=== PATIENT | female | born 1960 | race Hispanic/Latino ===

== ENCOUNTER 2022-11-14 14:26 | Emergency (ER) | payer BC ==
--- OUTSIDE RECORDS SUMMARY | 2022-11-14 14:30 | XMS REPORT | Continuity of Care Document ---
:[address] [facility] t Address [address] [facility] [address] [place] [address] Care Team Providers Name Role Phone White_M Attending Clinician Unavailable Zuniga_S Attending Clinician Unavailable IHDE_G Attending Clinician Unavailable V_Landis Attending Clinician Unavailable Zuniga_F Attending Clinician Unavailable White_M Admitting Clinician Unavailable Zuniga_S Admitting Clinician Unavailable IHDE_G Admitting Clinician Unavailable V_Landis Admitting Clinician Unavailable Zuniga_F Admitting Clinician Unavailable Payers Payer Name Policy Type Policy Number Effective Date Expiration Date S karyn [facility]: ANTHONY [id number] 2016 ADVANTAGE ([facility]) 00:00:00 Problems Condition Condition Condition Status Onset Resolution Last Treating Co mments Source Name Details Category Date Date Treatment Clinician Date Acute Acute Problem Active [facility] upper Upper 9-06 da respirator Respirator 00:00: Me dical y y 00 Group infection Infection Cough Cough Problem Active [facility] 9-06 da 00:00: Medical 00 Group Bacterial Bacterial Problem Active 2019- [facility] vaginosis Vaginosis 2-06 da 00:00: Medical 00 Group Candidiasi Candidiasi Problem Active 2019-0 M [facility] s of s of 2-06 da vagina Vagina 00:00: Medical 00 Group Female Female Problem Active 2019-0 [facility] stress Stress 2-06 da incontinen Incontinen 00:00: Me dical ce ce 00 Group History of History of Problem Active 2020-0 M [facility] polyp of Polyp of 2-06 da colon Colon 00:00: Medical 00 Group Gynecologi Gynecologi Problem Active 2020-0 M [facility] c c 2-06 da examinatio Examinatio 00:00: Me dical n n 00 Group Screening Screening Problem Active 2020-0 [facility] for for 05-02 da malignant Malignant 00:00: Medi caroline neoplasm Neoplasm 00 Group of breast of Breast Hyperlipid Hyperlipid Problem Active M allan emia emia [facility] Essential Essential Problem Active Trent resendizr hypertensi Hypertensi da on on Medical Group Gastroesop Gastroesop Problem Active M allan hageal hageal da reflux Reflux Medical disease Disease Group Eruption Eruption Problem Active [facility] Allergies, Adverse Reactions, Alerts This patient has no known allergies or adverse reactions. Social History Smoking Status Start Date Stop Date Source Former Smoker [facility] Medications Ordered Filled Start Stop Current Ordering Indication Dosage Frequency Signature Comments Components Source Medication Medication Date Date Medication? Clinician (SIG) Name Name famotidine famotidine No famotidine [facility] 20 mg 20 mg 20 mg da tablet TAKE tablet TAKE tablet Medical ONE (1) ONE (1) TAKE ONE Group TABLET(S) TABLET(S) (1) BY MOUTH BY MOUTH TABLET(S) TWICE A TWICE A BY MOUTH DAY. DAY. TWICE A DAY. metronidazo metronidazo No 1 BID metronidaz [place] le 500 mg le 500 mg ole 500 mg da tablet Take tablet Take tablet Medical 1 tablet 1 tablet Take 1 Group twice a day twice a day tablet by oral by oral twice a route for 7 route for 7 day by days. days. oral route for 7 days. famotidine famotidine No famotidine [facility] 20 mg 20 mg 20 mg da tablet TAKE tablet TAKE tablet Medical ONE (1) ONE (1) TAKE ONE Group TABLET(S) TABLET(S) (1) BY MOUTH BY MOUTH TABLET(S) TWICE A TWICE A BY MOUTH DAY. DAY. TWICE A DAY. metronidazo metronidazo No metronidaz [place] le 500 mg le 500 mg ole 500 mg da tablet TAKE tablet TAKE tablet Medical 1 TABLET 1 TABLET TAKE 1 Group TWICE A DAY TWICE A DAY TABLET BY ORAL BY ORAL TWICE A ROUTE FOR 7 ROUTE FOR 7 DAY BY DAYS. DAYS. ORAL ROUTE FOR 7 DAYS. albuterol albuterol No 2puff(s Q4H albuterol [facility] sulfate HFA sulfate HFA ) sulfate da 90 90 HFA 90 Medical mcg/actuati mcg/actuati mcg/actuat Group on aerosol on aerosol ion inhaler inhaler aerosol Inhale 2 Inhale 2 inhaler puffs every puffs every Inhale 2 4 hours by 4 hours by puffs inhalation inhalation every 4 route as route as hours by needed. needed. inhalation route as needed. benzonatate benzonatate No 1capsul TID benzonatat [facility] 200 mg 200 mg e(s) e 200 mg da capsule capsule capsule Medica l Take 1 Take 1 Take 1 Group capsule 3 capsule 3 capsule 3 times a day times a day times a by oral by oral day by route as route as oral route needed. needed. as needed. famotidine famotidine No famotidine [facility] 20 mg 20 mg 20 mg da tablet TAKE tablet TAKE tablet Medical ONE (1) ONE (1) TAKE ONE Group TABLET(S) TABLET(S) (1) BY MOUTH BY MOUTH TABLET(S) TWICE A TWICE A BY MOUTH DAY. DAY. TWICE A DAY. fluticasone fluticasone No 1spray( Q1D fluticason [facility] propionate propionate s) e da 50 50 propionate Medical mcg/actuati mcg/actuati 50 G roup on nasal on nasal mcg/actuat spray,suspe spray,suspe ion nasal nsion [place] nsion [place] spray,susp 1 spray 1 spray ension every day every day [place] 1 by by spray intranasal intranasal every day route. route. by intranasal route. Medrol Medrol No Medrol [place] (Reese) 4 mg (Reese) 4 mg (Reese) 4 mg da tablets in tablets in tablets in Medical a dose pack a dose pack a dose Group take as take as pack take directed. directed. as directed. Vital Signs Vital Name Observation Time Observation Value Comments Source BP Diastolic 2022-05-04 00:00:00 75 [facility]Hg[facility] Height 2022-05-04 00:00:00 60 [facility] BMI (Body Mass 2022-05-04 00:00:00 33.9 kg/m2 [facility] yardage caller Medical Index) Group BP Systolic 2022-05-04 00:00:00 149 mm[Hg] [facility] Body Weight 2022-05-04 00:00:00 173.7 [lb_av] [facility] BP Diastolic 2022-04-14 00:00:00 82 mm[Hg] [facility] Height 2022-04-14 00:00:00 60 [in_i] [facility] BMI (Body Mass 2022-04-14 00:00:00 34.8 kg/m2 [facility] Medical Index) Group BP Systolic 2022-04-14 00:00:00 134 mm[Hg] [facility] Body Weight 2022-04-14 00:00:00 178 [lb_av] [facility] BP Diastolic 2021-11-30 00:00:00 84 mm[Hg] [facility] Height 2021-11-30 00:00:00 60 [in_i] [facility] BMI (Body Mass 2021-11-30 00:00:00 34.4 kg/m2 [facility] Medical Index) Group BP Systolic 2021-11-30 00:00:00 154 mm[Hg] [facility] Body Weight 2021-11-30 00:00:00 2816 [oz_av] [facility] Height 2019-12-31 00:00:00 60 [in_i] [facility] BMI (Body Mass 2019-12-31 00:00:00 33.8 kg/m2 [facility] Medical Index) Group Body Weight 2019-12-31 00:00:00 2768 [oz_av] [facility] BP Diastolic 2019-12-12 00:00:00 68 mm[Hg] [facility] Height 2019-12-12 00:00:00 60 [in_i] [facility] BMI (Body Mass 2019-12-12 00:00:00 33.9 kg/m2 [facility] Medical Index) Group BP Systolic 2019-12-12 00:00:00 132 mm[Hg] [facility] Body Weight 2019-12-12 00:00:00 173.5 [lb_av] [facility] Height 2019-09-30 00:00:00 60 [in_i] [facility] BP Diastolic 2019-06-11 00:00:00 74 mm[Hg] [facility] Height 2019-06-11 00:00:00 60 [in_i] [facility] BMI (Body Mass 2019-06-11 00:00:00 33.2 kg/m2 [facility] yardage caller Medical Index) Group BP Systolic 2019-06-11 00:00:00 144 mm[Hg] [facility] Body Weight 2019-06-11 00:00:00 2721 [oz_av] [facility] BP Diastolic 2019-05-14 00:00:00 82 mm[Hg] [facility] Height 2019-05-14 00:00:00 60 [in_i] [facility] BMI (Body Mass 2019-05-14 00:00:00 33.4 kg/m2 [facility] yardage caller Medical Index) Group BP Systolic 2019-05-14 00:00:00 134 mm[Hg] [facility] Body Weight 2019-05-14 00:00:00 171 [lb_av] [facility] BP Diastolic 2019-05-02 00:00:00 84 mm[Hg] [facility] Height 2019-05-02 00:00:00 60 [in_i] [facility] BMI (Body Mass 2019-05-02 00:00:00 33.5 kg/m2 [facility] yardage caller Medical Index) Group BP Systolic 2019-05-02 00:00:00 132 mm[Hg] [facility] Body Weight 2019-05-02 00:00:00 171.4 [lb_av] [facility] BP Diastolic 2018-12-06 00:00:00 86 mm[Hg] [facility] Height 2018-12-06 00:00:00 60 [in_i] [facility] BMI (Body Mass 2018-12-06 00:00:00 34.2 kg/m2 [facility] yardage caller Medical Index) Group BP Systolic 2018-12-06 00:00:00 140 mm[Hg] [facility] Body Weight 2018-12-06 00:00:00 2800 [oz_av] [facility] BP Diastolic 2018-11-19 00:00:00 72 mm[Hg] [facility] Height 2018-11-19 00:00:00 60 [in_i] [facility] BMI (Body Mass 2018-11-19 00:00:00 34.2 kg/m2 [facility] yardage caller Medical Index) Group BP Systolic 2018-11-19 00:00:00 125 mm[Hg] [facility] Body Weight 2018-11-19 00:00:00 2800 [oz_av] [facility] Procedures Procedure Date / Time Performing Clinician Source Performed MAMMO, screening, digital, 2022-04-14 00:00:00 [facility] Upper GI Endoscopy 2019-06-05 00:00:00 [facility] Colonoscopy 2019-06-05 00:00:00 [facility] unlisted imaging order 2019-05-02 00:00:00 [facility] MAMMO, screening, 2018-11-19 00:00:00 [facility] Bladder Suspension 2013-03-27 00:00:00 [facility] Cholecystectomy 2011-03-27 00:00:00 [facility] Hy[facility] Plan of Care Planned Activity Planned Date Details Comments Source Diagnostic Test 2022-04-14 urinalysis, [facility] 00:00:00 dipstick [code = Group urinalysis, dipstick] Diagnostic Test 2022-04-14 genetic disease [facility] Pending 00:00:00 analysis, blood or Group tissue [code = genetic disease analysis, blood or tissue] Diagnostic Test 2022-04-14 STI panel [code = [facility] 00:00:00 STI panel] Group Instructions [facility] Encounters Start End Encounter Admission Attending Care Care Encounter Source Date/Time Date/Time Type Type Clinicians Facility Department ID 2022-08-29 2022-08-29 Outpatient White_M MMG MMG [id number] [facility] 00:00:00 00:00:00 605 [facility] 2022-08-29 2022-08-29 Outpatient White_M MMG MMG [id number] [facility] 00:00:00 00:00:00 821 [facility] 2022-05-04 2022-05-04 Outpatient White_M MMG MMG [id number] 230 [facility] 00:00:00 00:00:00 208 [facility] 2022-05-04 2022-05-04 Hellen G [place] - [id number] M [facility] 00:00:00 00:00:00 Discovery Denis BlankP-: [address] [address] , Ph. [phone] 2022-04-15 2022-04-15 Outpatient White_M MMG MMG [id number] [facility] 00:00:00 00:00:00 120 [facility] 2022-04-14 2022-04-14 Outpatient White_M MMG MMG [id number] 230 [facility] 00:00:00 00:00:00 119 [facility] 2022-04-14 2022-04-14 Hlelen PALAFOXG [place] - [id number] M [facility] 00:00:00 00:00:00 Discovery Denis BlankP-: [address] [address] , Ph. [phone] 2022-04-08 2022-04-08 Outpatient Zuniga_S MMG MMG [id number] [facility] 00:00:00 00:00:00 118 [facility] 2022-04-08 2022-04-08 Outpatient Zuniga_S MMG MMG [id number] [facility] 00:00:00 00:00:00 113 [facility] 2021-11-30 2021-11-30 Outpatient Zuniga_S MMG MMG [id number] [facility] 00:00:00 00:00:00 906 Medical [facility] 2021-11-30 2021-11-30 Karol G [place] - [id number] [facility] 00:00:00 00:00:00 Discovery Denis RicoP-: [address] [place] [phone] , Ph. 2021-05-25 2021-05-25 Outpatient IHDE_G MMG MMG [id number] [facility] 03:47:00 03:47:00 301 [facility] 2020-02-12 2020-02-12 Outpatient IHDE_G MMG MMG [id number] [place] 02:35:00 02:35:00 118 [facility] 2019-12-31 2019-12-31 Bobby IHDE_G MMG [id number] 1 [facility] 00:00:00 00:00:00 Orville Pitts 006 Skyler Gaytan Medical MD: 600 [facility] [address], [place] [address] , Ph. 2019-12-12 2019-12-12 Hector IHDE_G MMG 0 [facility] 00:00:00 00:00:00 Fermín Pitts 91Cristi Agrawal MD: Medical Medica teresa [address] [place] [address] [address], [place] [address] , Ph. [phone] 2019-12-11 2019-12-11 Outpatient IHDE_G MMG MMG [id number] [facility] 09:41:00 09:41:00 916 [facility] 2019-12-06 2019-12-06 Outpatient IHDE_G MMG MMG [id number] 200 [place] 11:36:00 11:36:00 911 [facility] 2019-11-28 2019-11-28 Outpatient IHDE_G MMG MMG [id number] 200 [place] 06:10:00 06:10:00 903 [facility] 2019-11-21 2019-11-21 Outpatient IHDE_G MMG MMG [id number] 200 [place] 10:16:00 10:16:00 827 [facility] 2019-10-15 2019-10-15 Bobby IHDE_G MMG [place] - [id number] 0 [facility] 00:00:00 00:00:00 Orville Pitts 721 Skyler Gaytan Medical MD: [address] [place] [address] [address], [place] [address] , Ph. 2019-09-30 2019-09-30 Bobby IHDE_G MMG [place] [id number] 0 [facility] 00:00:00 00:00:00 Orville Pitts 706 da [facility] Medical MD: [address] [address] , Ph. 2019-09-20 2019-09-20 Outpatient IHDE_G MMG MMG [id number] 200 [place] 11:27:00 11:27:00 626 [facility] 2019-09-13 2019-09-13 Outpatient IHDE_G MMG MMG [id number] 200 [place] 12:44:00 12:44:00 619 [facility] 2019-08-09 2019-08-09 Outpatient IHDE_G MMG MMG [id number] 200 [place] 01:02:00 01:02:00 515 [facility] 2019-07-30 2019-07-30 Anne Marie IHDE_G MMG [place] - 9062- [facility] 00:00:00 00:00:00 Discovery Penny 505 da SNOW RANGER: [address] [address] , Ph. 2019-07-05 2019-07-05 Outpatient IHDE_G MMG MMG [id number] 200 [place] 01:25:00 01:25:00 410 [facility] 2019-06-11 2019-06-11 Juana IHDE_G MMG [place] - [id number]- [facility] 00:00:00 00:00:00 Stormy Pitts 317 tyrell Zaidi Medical Medical SNOW RANGER: [address] [address], [place] [address] , Ph. 2019-06-05 2019-06-05 Outpatient IHDE_G MMG MMG [id number] 200 [place] 03:28:00 03:28:00 311 [facility] 2019 2019 Outpatient IHDE_G MMG MMG [id number] 200 [place] 12:02:00 12:02:00 304 [facility] 2019-05-28 2019-05-28 Outpatient IHDE_G MMG MMG [id number] 200 [place] 12:07:00 12:07:00 303 [facility] 2019-05-15 2019-05-15 Outpatient IHDE_G MMG MMG [id number] 200 [place] 08:17:00 08:17:00 219 [facility] 2019-05-14 2019-05-14 Hector IHDE_G MMG [place] - [id number] [facility] 00:00:00 00:00:00 Fermín Pitts 218 tyerll Dominguez MD: Skyler moore [address] [place] [address] [address], [place] [address] , Ph. [phone] 2019-05-03 2019-05-03 Outpatient V_Landis MMG MMG [id number] [facility] 09:17:00 09:17:00 207 [facility] 2019-05-02 2019-05-02 Samara King V_Landis MMG [place] - [id number] [facility] 00:00:00 00:00:00 Discovery Bertram 206 da WHNP: [address] [place] [address] [address], [place] [address] , Ph. [phone] 2019-05-01 2019-05-01 Outpatient Zuniga_F MMG MMG [id number] [facility] 11:16:00 11:16:00 205 [facility] 2019-04-26 2019-04-26 Outpatient Zuniga_F MMG MMG [id number] [facility] 10:48:00 10:48:00 131 [facility] 2019-04-23 2019-04-23 Outpatient Zuniga_F MMG MMG [id number] [facility] 12:50:00 12:50:00 128 [facility] 2018-12-06 2018-12-06 Bobby MMG [place] - [id number] 0 [facility] 00:00:00 00:00:00 Orville Pitts 912 da Skyler Rico MD: [address] [place] [address] [address], [place] [address] , Ph. 2018-11-19 2018-11-19 Bobby [facility] [place] - [id number] 0 [facility] 00:00:00 00:00:00 Orville Gaytan, Medical Medical MD: [facility] [address], [place] [address] , Ph. Results Test Description Test Time Test Comments Results Result Comments Source STI panel 2022-04-15 00:00:00 Test Item Value Reference Range Interpretation Comme nts nel - swab (test code = nel - swab) normal gardnerella (test code = gardnerella) normal CT/NG (test code = CT/NG) normal trichomonas vaginalis addon - swab (test code = trichomonas vaginal is normal addon - swab) [facility] - cancer history assessment [id number] 07:32:00 Test Item Value Reference Range Interpretation Comments [facility] meets criteria A assessment result (test code = [facility] [place] result) [facility] Ag [Presence] in Respiratory specimen by Rapid [id number] 10:01:30 Test Item Value Reference Range Interpretation Comments SARS-CoV - 2 (test code = SARS-CoV - negative 2) [facility] [id number] 05:59:00 Test Item Value Reference Range Interpretation Comments Surgical pathology see separate pathology study (test code = report. 09558-6) [facility] - [id number] 09:20:38 Test Item Value Reference Range Interpretation Comments Leukocytes (test code = Negative Leukocytes) Nitrite (test code = negative Nitrite) Urobilinogen (test code = .2 Urobilinogen) Protein (test code = Negative Protein) pH (test code = pH) 6.5 Blood (test code = Blood) Hemolyzed: Trace Specific Rutherford (test code 1.030 = Specific Rutherford) Ketone (test code = Ketone) Negative Bilirubin (test code = Negative Bilirubin) Glucose (test code = Negative Glucose) Appearance (test code = Clear Appearance) Color (test code = Color) Yellow [facility] (dipstick) panel - [id number] 09:20:38 Test Item Value Reference Range Interpretation Comments Leukocytes (test code = Negative Leukocytes) Nitrite (test code = negative Nitrite) Urobilinogen (test code = .2 Urobilinogen) Protein (test code = Negative Protein) pH (test code = pH) 6.5 Blood (test code = Blood) Hemolyzed: Trace Specific [place]uther[place] (test code 1.030 = Specific [place]) Ketone (test code = Ketone) Negative Bilirubin (test code = Negative Bilirubin) Glucose (test code = Negative Glucose) Appearance (test code = Clear Appearance) Color (test code = Color) Yellow [facility]em[facility] A[facility] [Mass/volume] in [id number] 06:44:00 Test Item Value Reference Range Interpretation Comments Hemoglobin A1c [Mass/volume] in Blood 5.8 % 4.0-6.0 (test code = 69062-3) [facility] panel - Serum or [id number] 06:44:00 Test Item Value Reference Range Interpretation Comments cholesterol level (test code = 209 mg/dL 150-200 H cholesterol level) triglycerides level (test code = 218 mg/dL <150 H triglycerides level) HDL cholesterol (test code = HDL 50 mg/dL >65 L cholesterol) LDL cholesterol direct (test code = 138 mg/dL <100 H LDL cholesterol direct) cholesterol risk ratio (test code = 4.180 cholesterol risk ratio) [facility] 2000 panel - Serum or Plasma 2018-11-20 06:44:00 Test Item Value Reference Range Interpretation Comments Glucose [Mass/volume] in Serum or 97 mg/dL 74-106 Plasma (test code = 2345-7) Urea nitrogen [Mass/volume] in 12 mg/dL 6-20 Serum or Plasma (test code = 3094-0) osmolality calculated, serum (test 277 280-300 L code = osmolality calculated, serum) creatinine (test code = 0.5 mg/dL 0.50-0.90 creatinine) glomerular filtration rate (test >60.00 code = glomerular filtration rate) Urea nitrogen/Creatinine [Mass 24.0 12-20 H Ratio] in Serum or Plasma (test code = 3097-3) sodium level (test code = sodium 139 mmol/L 135-145 level) potassium level (test code = 4.1 mmol/L 3.5-5.2 potassium level) chloride level (test code = 102 mmol/L 98-108 chloride level) CO2 (test code = CO2) 22 mmol/L 21-32 anion gap (test code = anion gap) 19.1 mEq/L 12-20 calcium level (test code = calcium 9.2 mg/dL 8.6-10.0 level) total protein (test code = total 7.2 g/dL 6.6-8.7 protein) albumin (test code = albumin) 4.1 g/dL 3.5-5.2 globulin (test code = globulin) 3.1 gm/dL A/G ratio (test code = A/G ratio) 1.3 >1.0 bilirubin,total (test code = <0.3 0.0-1.2 bilirubin,total) AST/SGOT (test code = AST/SGOT) 21 U/L 15-32 Alanine aminotransferase 15 U/L 0-33 [Enzymatic activity/volume] in Serum or Plasma (test code = 1742-6) Alkaline phosphatase [Enzymatic 90 U/L 35-105 activity/volume] in Serum or Plasma (test code = 6768-6) [facility] W Auto Differential panel - [id number] 06:44:00 Test Item Value Reference Range Interpretation Comments white blood count (test code = 9.0 K/uL 4.0-11.5 white blood count) red blood count (test code = red 4.51 M/uL 3.80-5.20 blood count) hemoglobin (test code = 12.6 g/dL 10.5-15.7 hemoglobin) hematocrit (test code = 40.5 % 34.0-50.0 hematocrit) Erythrocyte mean corpuscular 89.8 fL 86-100 volume [Entitic volume] (test code = 65107-4) mean corpuscular hemoglobin (test 27.9 pg 26.2-33.4 code = mean corpuscular hemoglobin) mean corpuscular HGB conc (test 31.1 g/dL 30-34 code = mean corpuscular HGB conc) red cell distribution width (test 13.2 % 12.0-15.5 code = red cell distribution width) platelet count (test code = 309 K/uL 165-450 platelet count) mean platelet volume (test code = 11.4 fL 9.4-12.6 mean platelet volume) Neutrophils.segmented/100 68.2 % 44.4-80.1 leukocytes in Blood (test code = 02278-3) Ig% (test code = Ig%) 0.4 % 0.0-0.4 lymphocyte% (test code = 24.8 % 10.0-50.0 lymphocyte%) mono % (test code = mono %) 5.1 % 3.6-12.0 eos % (test code = eos %) 1.3 % 0.0-5.4 Basophils/100 leukocytes in 0.2 % 0.1-1.2 Unspecified specimen (test code = 13454-0) absolute neutrophil count (test 6.09 K/uL 1.56-6.13 code = absolute neutrophil count) Ig# (test code = Ig#) 0.0 K/uL 0.0-0.03 Lymphocytes [#/volume] in 2.2 K/uL 1.18-3.74 Unspecified specimen by Automated count (test code = 15384-9) mono # (test code = mono #) 0.46 K/uL 0.24-0.86 eos # (test code = eos #) 0.12 K/uL 0.04-0.36 basophil # (test code = basophil 0.02 K/uL 0.01-0.08 #) NRBC% (test code = NRBC%) 0 /100 WBC 0-0.2 NRBC# (test code = NRBC#) 0 K/uL [facility], [id number] 06:44:00 NeutrophilsLymphocyteAtypical LymphMonocytePlatelet EstimatePlatelet MorphologyDifferential comment-PMaMerit Health CentralHemoglobin A1c [Mass/volume] in [id number] 06:44:00 Test Item Value Reference Range Interpretation Comments Hemoglobin A1c [Mass/volume] in Blood 5.8 % 4.0-6.0 (test code = 16409-9) [facility] panel - Serum or [id number] 06:44:00 Test Item Value Reference Range Interpretation Comments cholesterol level (test code = 209 mg/dL 150-200 H cholesterol level) triglycerides level (test code = 218 mg/dL <150 H triglycerides level) HDL cholesterol (test code = HDL 50 mg/dL >65 L cholesterol) LDL cholesterol direct (test code = 138 mg/dL <100 H LDL cholesterol direct) cholesterol risk ratio (test code = 4.180 cholesterol risk ratio) [facility] 2000 panel - Serum or Plasma 2018-11-20 06:44:00 Test Item Value Reference Range Interpretation Comments Glucose [Mass/volume] in Serum or 97 mg/dL 74-106 Plasma (test code = 2345-7) Urea nitrogen [Mass/volume] in 12 mg/dL 6-20 Serum or Plasma (test code = 3094-0) osmolality calculated, serum (test 277 280-300 L code = osmolality calculated, serum) creatinine (test code = 0.5 mg/dL 0.50-0.90 creatinine) glomerular filtration rate (test >60.00 code = glomerular filtration rate) Urea nitrogen/Creatinine [Mass 24.0 12-20 H Ratio] in Serum or Plasma (test code = 3097-3) sodium level (test code = sodium 139 mmol/L 135-145 level) potassium level (test code = 4.1 mmol/L 3.5-5.2 potassium level) chloride level (test code = 102 mmol/L 98-108 chloride level) CO2 (test code = CO2) 22 mmol/L 21-32 anion gap (test code = anion gap) 19.1 mEq/L 12-20 calcium level (test code = calcium 9.2 mg/dL 8.6-10.0 level) total protein (test code = total 7.2 g/dL 6.6-8.7 protein) albumin (test code = albumin) 4.1 g/dL 3.5-5.2 globulin (test code = globulin) 3.1 gm/dL A/G ratio (test code = A/G ratio) 1.3 >1.0 bilirubin,total (test code = <0.3 0.0-1.2 bilirubin,total) AST/SGOT (test code = AST/SGOT) 21 U/L 15-32 Alanine aminotransferase 15 U/L 0-33 [Enzymatic activity/volume] in Serum or Plasma (test code = 1742-6) Alkaline phosphatase [Enzymatic 90 U/L 35-105 activity/volume] in Serum or Plasma (test code = 6768-6) [facility] W Auto Differential panel - [id number] 06:44:00 Test Item Value Reference Range Interpretation Comments white blood count (test code = 9.0 K/uL 4.0-11.5 white blood count) red blood count (test code = red 4.51 M/uL 3.80-5.20 blood count) hemoglobin (test code = 12.6 g/dL 10.5-15.7 hemoglobin) hematocrit (test code = 40.5 % 34.0-50.0 hematocrit) Erythrocyte mean corpuscular 89.8 fL 86-100 volume [Entitic volume] (test code = 68197-1) mean corpuscular hemoglobin (test 27.9 pg 26.2-33.4 code = mean corpuscular hemoglobin) mean corpuscular HGB conc (test 31.1 g/dL 30-34 code = mean corpuscular HGB conc) red cell distribution width (test 13.2 % 12.0-15.5 code = red cell distribution width) platelet count (test code = 309 K/uL 165-450 platelet count) mean platelet volume (test code = 11.4 fL 9.4-12.6 mean platelet volume) Neutrophils.segmented/100 68.2 % 44.4-80.1 leukocytes in Blood (test code = 61306-1) Ig% (test code = Ig%) 0.4 % 0.0-0.4 lymphocyte% (test code = 24.8 % 10.0-50.0 lymphocyte%) mono % (test code = mono %) 5.1 % 3.6-12.0 eos % (test code = eos %) 1.3 % 0.0-5.4 Basophils/100 leukocytes in 0.2 % 0.1-1.2 Unspecified specimen (test code = 69467-6) absolute neutrophil count (test 6.09 K/uL 1.56-6.13 code = absolute neutrophil count) Ig# (test code = Ig#) 0.0 K/uL 0.0-0.03 Lymphocytes [#/volume] in 2.2 K/uL 1.18-3.74 Unspecified specimen by Automated count (test code = 99168-7) mono # (test code = mono #) 0.46 K/uL 0.24-0.86 eos # (test code = eos #) 0.12 K/uL 0.04-0.36 basophil # (test code = basophil 0.02 K/uL 0.01-0.08 #) NRBC% (test code = NRBC%) 0 /100 WBC 0-0.2 NRBC# (test code = NRBC#) 0 K[facility]L [facility] [id number] 06:44:00 NeutrophilsLymphocyteAtypical LymphMonocytePlatelet EstimatePlatelet MorphologyDifferential comment-[facility]
--- NOTE | 2022-11-14 15:26 | RAD REPORT ---
EXAM DESCRIPTION: CT - Head Brain Wo Cont - 11/14/2022 3:10 pm CLINICAL HISTORY: Facial droop COMPARISON: none TECHNIQUE: Computed axial tomography of the head was obtained. IV contrast was not requested. All CT scans are performed using dose optimization technique as appropriate and may include automated exposure control or mA/KV adjustment according to patient size. FINDINGS: An intracranial bleed is not seen The ventricles are normal in caliber No significant hypodense areas within the brain visualized No extra-axial fluid collection is noted. Fluid within the sinuses/ mastoids is not seen IMPRESSION: No acute intracranial abnormality is seen If patient's symptoms persist MRI of the brain would be recommended
--- NOTE | 2022-11-14 15:27 | RAD REPORT ---
EXAM DESCRIPTION: [place] Single View11/14/2022 3:16 pm CLINICAL HISTORY: sob COMPARISON: none FINDINGS: The lungs appear clear of acute infiltrate. The heart is normal size IMPRESSION: No acute abnormalities displayed
[2022-11-14 16:19] LABS: Absolute Lymphocytes (CBC) 2.2 K/uL (0.7-4.9); Hematocrit 40.6 % (36.0-45.0); MCV 87.3 fL (80-100); MPV 8.6 fL (7.6-11.3); Platelets 348 thou/uL (152-406); RBC Red Blood Cell Count 4.65 M/uL (3.86-4.86)
[2022-11-14 16:27] LABS: Protime INR 0.98
[2022-11-14 16:38] LABS: Albumin 3.7 g/dL (3.4-5.0); Bilirubin Direct 0.1 mg/dL (0-0.2); Bilirubin Indirect, Calculated 0.3 mg/dL (0.2-0.8); Bilirubin Total 0.4 mg/dL (0.2-1.0); Magnesium 2.1 mg/dL (1.6-2.4); Potassium 3.4 mEq/L (3.5-5.1); Protein, Total 7.7 g/dL (6.4-8.2)
[2022-11-14] MEDS ORDERED: NA CHLORIDE 0.9% 250 ML ONE (17:31)
[2022-11-14] MEDS ORDERED: NA CHLORIDE 0.9% 1,000 ML ONE (17:31)
[2022-11-14] MEDS ORDERED: LABETALOL 20 MG/4ML SYRINGE IV ONE (17:31)
[2022-11-14] MEDS ORDERED: AZITHROMYCIN 500 MG INJ IVPB ONE (17:31)
[2022-11-14] MEDS ORDERED: dexAMETHasone 10 MG/ML VIAL ONE (17:31)
[2022-11-14 18:09] LABS: Barbiturates NEGATIVE (NEGATIVE); Benzodiazepines NEGATIVE (NEGATIVE); Cocaine NEGATIVE (NEGATIVE); METHAMPHETAM NEGATIVE (NEGATIVE); Methadone NEGATIVE (NEGATIVE); Opiates NEGATIVE (NEGATIVE); Phencyclidine NEGATIVE (NEGATIVE); THC Cannibis NEGATIVE (NEGATIVE)
--- NOTE | 2022-11-14 18:10 | EKG ---
Test Date: 2022-11-14 Test Time: 15:31:42 Beam Worker: NEAL MEASUREMENT RESULTS: Intervals: Rate: 134 DC: 134 QRSD: 76 QT: 286 QTc: 427 [place]: P: 68 DC: 134 QRS: 49 T: 31 INTERPRETIVE STATEMENTS: Sinus tachycardia Cannot rule out Anterior infarct, age undetermined Abnormal ECG No previous ECG available for comparison Electronically Signed On 11-14-22 18:01:18 CDT by Alvaro Bal
--- NOTE | 2022-11-14 18:32 | RAD REPORT ---
EXAM DESCRIPTION: CT - Chest For Pe Angio - 11/14/2022 6:19 pm CLINICAL HISTORY: sob COMPARISON: None. TECHNIQUE: Dynamically enhanced axial 3 mm thick images of the chest were obtained during administra tion of 100 mL Isovue 370 IV contrast. Coronal and oblique reconstruction images were generated and r eviewed. Exam utilizes a protocol for optimal evaluation of pulmonary arterial tree. Maximum intensity projections 3D imaging was utilized All CT scans are performed using dose optimization technique as appropriate and may include automated exposure control or mA/KV adjustment according to patient size. FINDINGS: A pulmonary embolus is not seen. A thoracic aortic aneurysm is not noted. A pleural effusion is not seen. A pericardial effusion is not seen. A lung consolidation is not present. IMPRESSION: Negative for a pulmonary embolism.
--- NOTE | 2022-11-14 19:36 | ER ---
Nurse's Notes [facility] Name: Bertha Porras Age: 62 yrs Sex: Female : 1960 Arrival Date: 11/14/2022 Time: 14:26 Bed 16 Private MD: Diagnosis: Salas's palsy;Viral infection, unspecified-covid 19 ;Tachycardia, unspecified;Elevated blood-pressure reading, without diagnosis of hypertension;Simple chronic bronchitis Presentation: 11/14 14:36 Chief complaint: Patient states: SOB, lingering cough for 1 month. Noticed a facial ll1 droop and R eye watering since Monday. Coronavirus screen: Vaccine status: Patient reports receiving the 2nd dose of the covid vaccine. Client denies travel out of the [place] in the last 14 days. cough unrelated to allergies, difficulty breathing, fatigue, shortness of breath, Client presents with at least one sign or symptom that may indicate coronavirus-19. Standard/surgical mask placed on the client. Ebola Screen: Patient denies travel to an Ebola-affected area in the 21 days before illness onset. Initial Sepsis Screen: Does the patient meet any 2 criteria? No. Patient's initial sepsis screen is negative. Does the patient have a suspected source of infection? No. Patient's initial sepsis screen is negative. Risk Assessment: Do you want to hurt yourself or someone else? Patient reports no desire to harm self or others. Onset of symptoms was October 14, 2022. 14:36 Method Of Arrival: Ambulatory ll1 14:36 Acuity: OLTTIE 2 ll1 Historical: - Allergies: 14:38 No Known Allergies; ll1 - PMHx: 14:38 None; ll1 - PSHx: 14:38 hysterectomy; Cholecystectomy; bladder mesh; Tonsillectomy; ll1 - Immunization history:: Client reports receiving the 2nd dose of the Covid vaccine. - Social history:: Smoking status: Patient denies any tobacco usage or history of. - Family history:: not pertinent. Screenin:30 [facility] ED Fall Risk Assessment (Adult) History of falling in the last 3 months, pf1 including since admission No falls in past 3 months (0 pts) Confusion or Disorientation No (0 pts) Intoxicated or Sedated No (0 pts) Impaired Gait No (0 pts) Mobility Assist Device Used No (0 pt) Altered Elimination No (0 pt) Score/Fall Risk Level 0 - 2 = Low Risk Oriented to surroundings, Maintained a safe environment, Educated pt \T\ family on fall prevention, incl call for assistance when getting out of bed, Assessed \T\ reinforced patient's understanding of fall precautions, Provided non-skid footwear, Hourly rounding (assess needs \T\ fall precautionary measures) done, Used ambulatory aids as needed (educated on \T\ assisted with), Used gait belt as appropriate. Abuse screen: Denies threats or abuse. Nutritional screening: No deficits noted. Tuberculosis screening: No symptoms or risk factors identified. Assessment: 19:30 General: Appears in no apparent distress. comfortable, well groomed, well developed, pf1 Behavior is calm, cooperative, appropriate for age, quiet. 19:30 Pain: Denies pain. Neuro: Level of Consciousness is awake, alert, obeys commands, pf1 Oriented to person, place, time, situation, Facial droop on right. Cardiovascular: No deficits noted. Capillary refill < 3 seconds Patient's skin is warm and dry. 19:30 Respiratory: Reports shortness of breath cough that is Airway is patent Respiratory pf1 effort is even, unlabored, Respiratory pattern is regular, symmetrical, Breath sounds are clear bilaterally. 19:30 GI: No deficits noted. No signs and/or symptoms were reported involving the pf1 gastrointestinal system. : No deficits noted. No signs and/or symptoms were reported regarding the genitourinary system. EENT: Reports nasal congestion with right eye watering. Derm: No deficits noted. No signs and/or symptoms reported regarding the dermatologic system. Musculoskeletal: No deficits noted. No signs and/or symptoms reported regarding the musculoskeletal system. Vital Signs: 14:36 BP 221 / 78; Pulse 145; Resp 20; Temp 97.1; Pulse Ox 99% ; Weight 76.66 kg; Height 4 ll1 ft. 11 in. ; Pain 8/10; 19:47 BP 144 / 82; Pulse 102; Resp 18; Temp 98(IR); Pulse Ox 97% on R/A; Pain 0/10; pf1 14:36 Body Mass Index 34.13 (76.66 kg, 149.86 cm) ll1 14:36 Pain Scale: Adult ll1 19:47 Pain Scale: Adult pf1 ED Course: 14:29 Patient arrived in ED. rg4 14:38 Triage completed. ll1 14:39 Arm band placed on. ll1 14:43 Sukhi Benson MD is Attending Physician. cp3 14:43 Notified Charge Nurse of HR 145, BP 221/78, s/s of stroke started Monday. ll1 15:11 CT Head Brain wo Cont In Process Unspecified. EDMS 15:17 Chest Single View XRAY In Process Unspecified. EDMS 16:00 Inserted saline lock: 20 gauge in right antecubital area, using aseptic technique. eh3 Blood collected. 16:09 COVID-19 SARS RT PCR Sent. eh3 16:09 Flu Sent. eh3 16:09 Strep Sent. eh3 18:21 CT Chest For PE Angio In Process Unspecified. EDMS 19:01 Frannie Biswas, RN is Primary Nurse. ko1 19:35 Provided Education on: Covid-19 education and to wear a mask. pf1 19:35 Patient has correct armband on for positive identification. Bed in low position. Call pf1 light in reach. 19:47 No provider procedures requiring assistance completed. IV discontinued, intact, pf1 bleeding controlled, No redness/swelling at site. Pressure dressing applied. Administered Medications: 17:40 Drug: Decadron - Dexamethasone IVP 10 mg Route: IVP; Site: right antecubital; 3 19:47 Follow up: Response: No adverse reaction; Marked relief of symptoms pf1 17:40 Drug: NS 0.9% IV 1000 ml Route: IV; Rate: 1 bolus; Site: right antecubital; 3 19:30 Follow up: Response: No adverse reaction; Marked relief of symptoms; IV Status: pf1 Completed infusion; IV Intake: 1000ml 17:40 Drug: AZITHromycin IVPB 500 mg Route: IVPB; Infused Over: 1 hrs; Site: right 3 antecubital; 19:30 Follow up: Response: No adverse reaction; Marked relief of symptoms; IV Status: pf1 Completed infusion; IV Intake: 100ml 17:40 Drug: Labetalol IV 10 mg Route: IV; Rate: bolus; Site: right antecubital; 3 19:30 Follow up: Response: No adverse reaction; Marked relief of symptoms; Blood pressure is pf1 lowered; IV Status: Completed infusion Medication: 19:30 VIS not applicable for this client. pf1 Intake: 19:30 IV: 100ml; Total: 100ml. pf1 19:30 IV: 1000ml; Total: 1100ml. pf1 Outcome: 19:35 Discharge ordered by . cp3 19:48 Discharged to home ambulatory, with family. pf1 19:48 Condition: improved 19:48 Discharge instructions given to patient, Instructed on discharge instructions, follow up and referral plans. Demonstrated understanding of instructions, follow-up care, medications, Prescriptions given X 3. 19:48 Patient left the ED. pf1 Signatures: Dispatcher [employer] Sukhi Pereira MD MD cp3 Cassandra Pascual4 Dariana Banda RN RN ll1 Berta Romero RN RN 3 Frannie Biswas RN RN ko1 Bridget Lemons, JUNIOR RN pf1 Corrections: (The following items were deleted from the chart) 14:43 14:36 Acuity: LOTTIE 3 ll1 ll1
--- NOTE | 2022-11-14 19:36 | EDPHYS ---
Physician Documentation [facility] Name: Bertha Porras Age: 62 yrs Sex: Female : 1960 Arrival Date: 11/14/2022 Time: 14:26 Bed 16 Private MD: ED Physician Sukhi Benson HPI: 11/14 17:16 This 62 yrs old Female presents to ER via Ambulatory with complaints of cp3 Shortness Of Breath, Facial Droop. 17:16 Patient is a 62-year-old female who presents to the ED secondary to right-sided facial cp3 droop spontaneously 2 days ago. Patient also endorses she has been having cough, congestion and dyspnea on exertion. Patient denies fever. Historical: - Allergies: 14:38 No Known Allergies; ll1 - PMHx: 14:38 None; ll1 - PSHx: 14:38 hysterectomy; Cholecystectomy; bladder mesh; Tonsillectomy; ll1 - Immunization history:: Client reports receiving the 2nd dose of the Covid vaccine. - Social history:: Smoking status: Patient denies any tobacco usage or history of. - Family history:: not pertinent. ROS: 17:16 Constitutional: Negative for fever, chills, and weight loss, Eyes: Negative for injury, cp3 pain, redness, and discharge, ENT: Negative for injury, pain, and discharge, Neck: Negative for injury, pain, and swelling, Cardiovascular: Negative for chest pain, palpitations, and edema. 17:16 Abdomen/GI: Negative for abdominal pain, nausea, vomiting, diarrhea, and constipation, Back: Negative for injury and pain, : Negative for injury, bleeding, discharge, and swelling, MS/Extremity: Negative for injury and deformity, Skin: Negative for injury, rash, and discoloration. 17:16 Psych: Negative for depression, anxiety, suicide ideation, homicidal ideation, and hallucinations, Endocrine: Negative for neck swelling, polydipsia, polyuria, polyphagia, and marked weight changes, Hematologic/Lymphatic: Negative for swollen nodes, abnormal bleeding, and unusual bruising. 17:16 Respiratory: Positive for cough. 17:16 Neuro: Positive for Right-sided facial droop. Exam: 17:16 Constitutional: This is a well developed, well nourished patient who is awake, alert, cp3 and in no acute distress. Head/Face: Normocephalic, atraumatic. Eyes: Pupils equal round and reactive to light, extra-ocular motions intact. Lids and lashes normal. Conjunctiva and sclera are non-icteric and not injected. Cornea within normal limits. Periorbital areas with no swelling, redness, or edema. ENT: Nares patent. No nasal discharge, no septal abnormalities noted. Tympanic membranes are normal and external auditory canals are clear. Oropharynx with no redness, swelling, or masses, exudates, or evidence of obstruction, uvula midline. Mucous membranes moist. Neck: Trachea midline, no thyromegaly or masses palpated, and no cervical lymphadenopathy. Supple, full range of motion without nuchal rigidity, or vertebral point tenderness. No Meningismus. Chest/axilla: Normal chest wall appearance and motion. Nontender with no deformity. No lesions are appreciated. Cardiovascular: Regular rate and rhythm with a normal S1 and S2. No gallops, murmurs, or rubs. Normal PMI, no JVD. No pulse deficits. Constitutional: The patient appears in no acute distress, alert, awake, non-diaphoretic, non-toxic, well developed, anxious, comatose, contracted, diaphoretic, emaciated, febrile. 17:16 Respiratory: Respirations: normal. 17:16 Neuro: right facial droop. Vital Signs: 14:36 BP 221 / 78; Pulse 145; Resp 20; Temp 97.1; Pulse Ox 99% ; Weight 76.66 kg; Height 4 ll1 ft. 11 in. ; Pain 8/10; 19:47 BP 144 / 82; Pulse 102; Resp 18; Temp 98(IR); Pulse Ox 97% on R/A; Pain 0/10; pf1 14:36 Body Mass Index 34.13 (76.66 kg, 149.86 cm) ll1 14:36 Pain Scale: Adult ll1 19:47 Pain Scale: Adult pf1 Procedures: 17:16 Performed EKG interpreted by me at 1531: Sinus tachycardia rate 1 34 QT 286, no cp3 evidence of acute CO. MDM: 15:13 Patient medically screened. cp3 17:16 Differential diagnosis: asthma, Bronchitis pneumonia, Pulmonary Embolism reactive cp3 airway disease, Viral syndrome. Antibiotic administration: Azithromycin IV given for pneumonitis. Data reviewed: vital signs, nurses notes, EKG, radiologic studies, plain films. Consideration of Admission/Observation Escalation of care including admission/observation considered. I considered the following discharge prescriptions or medication management in the emergency department Medications were administered in the Emergency Department. See MAR. Independent interpretation of the following test(s) in the Emergency Department EKG: See my EKG interpretation above X-Ray: My interpretation is No acute cardiopulmonary process. logistics manager: logistics manager rhythm strip interpreted by me at 5:27 PM rate 122. Labetalol IV given for sinus tachycardia and elevated blood pressure. ED course: decadron iv, azithromycin, labetalol iv given, ivf. 11/14 14:53 Order name: Basic Metabolic Panel; Complete Time: 17:05 cp3 11/14 14:53 Order name: CBC with Diff; Complete Time: 16:20 cp3 11/14 14:53 Order name: Hepatic Function; Complete Time: 17:05 cp3 11/14 14:53 Order name: Magnesium; Complete Time: 17:05 cp3 11/14 14:53 Order name: Protime (+inr); Complete Time: 16:36 cp3 11/14 14:53 Order name: Ptt, Activated; Complete Time: 16:36 cp3 11/14 14:53 Order name: Troponin High Sensitivity; Complete Time: 17:05 cp3 11/14 14:53 Order name: UDS; Complete Time: 18:43 cp3 11/14 14:53 Order name: Flu; Complete Time: 17:05 cp3 11/14 14:53 Order name: Strep cp3 11/14 14:53 Order name: COVID-19 SARS RT PCR; Complete Time: 17:05 cp3 11/14 16:35 Order name: Throat Culture EDMS 11/14 14:53 Order name: CT Head Brain wo Cont; Complete Time: 16:19 cp3 11/14 14:53 Order name: Chest Single View XRAY; Complete Time: 16:19 cp3 11/14 18:06 Order name: CT Chest For PE Angio; Complete Time: 18:43 cp3 11/14 14:53 Order name: EKG; Complete Time: 14:58 cp3 11/14 14:53 Order name: Cardiac monitoring; Complete Time: 16:09 cp3 11/14 14:53 Order name: EKG - Nurse/Tech; Complete Time: 16:09 cp3 11/14 14:53 Order name: IV Saline Lock; Complete Time: 16: cp3 11/14 14:53 Order name: Labs collected and sent; Complete Time: 16: cp3 11/14 14:53 Order name: NPO; Complete Time: 16: cp3 11/14 14:53 Order name: O2 Per Protocol; Complete Time: 16: cp3 11/14 14:53 Order name: O2 Sat Monitoring; Complete Time: 16: cp3 11/14 14:53 Order name: Droplet/Contact Precautions; Complete Time: 16: cp3 11/14 14:53 Order name: Labs collected and sent; Complete Time: 16: cp3 11/14 14:53 Order name: O2 Per Protocol; Complete Time: 16: cp3 Administered Medications: 17:40 Drug: Decadron - Dexamethasone IVP 10 mg Route: IVP; Site: right antecubital; [facility] 19:47 Follow up: Response: No adverse reaction; Marked relief of symptoms pf1 17:40 Drug: NS 0.9% IV 1000 ml Route: IV; Rate: 1 bolus; Site: right antecubital; [facility] 19:30 Follow up: Response: No adverse reaction; Marked relief of symptoms; IV Status: pf1 Completed infusion; IV Intake: 1000ml 17:40 Drug: AZITHromycin IVPB 500 mg Route: IVPB; Infused Over: 1 hrs; Site: right [address]; 19:30 Follow up: Response: No adverse reaction; Marked relief of symptoms; IV Status: pf1 Completed infusion; IV Intake: 100ml 17:40 Drug: Labetalol IV 10 mg Route: IV; Rate: bolus; Site: right antecubital; [facility] 19:30 Follow up: Response: No adverse reaction; Marked relief of symptoms; Blood pressure is pf1 lowered; IV Status: Completed infusion Disposition Summary: 11/14/22 19:35 Discharge Ordered Location: Home cp3 Condition: Stable cp3 Diagnosis - Salas's palsy cp3 - Viral infection, unspecified - covid 19 cp3 - Tachycardia, unspecified cp3 - Elevated blood-pressure reading, without diagnosis of hypertension cp3 - Simple chronic bronchitis cp3 Followup: cp3 - With: Private Physician - When: - Reason: Re-evaluation by your physician Discharge Instructions: - Discharge Summary Sheet cp3 - Salas's Palsy, Adult cp3 - COVID-19 cp3 Forms: - Medication Reconciliation Form cp3 - Thank You Letter cp3 - Antibiotic Education cp3 - Prescription Opioid Use cp3 - Patient Portal Instructions cp3 - Leadership Thank You Letter cp3 Prescriptions: - Tessalon Perles 100 mg Oral Capsule - take 1 capsule by ORAL route every 8 hours As needed; 15 capsule; Refills: 0, cp3 Product Selection Permitted - Zithromax Z-Reese 250 mg Oral Tablet - take 1 tablet by ORAL route as directed for 5 days Day 1 - take two (2) tablets cp3 one time. Day 2, 3, 4 , 5 take one (1) tablet once daily.; 6 tablet; Refills: 0, Product Selection Permitted - Prednisone 20 mg Oral Tablet - take 2 tablets by ORAL route once daily for 5 days; 10 tablet; Refills: 0, cp3 Product Selection Permitted Signatures: Dispatcher [employer] Sukhi Pereira MD MD cp3 Dariana Banda RN RN ll1 Berta Romero RN RN 3 Bridget Lemons RN pf1
[2022-11-14 19:55] VITALS: BP 144/82; TEMP 98; O2SAT 97
== END 2022-11-14 19:48 | disposition home or self-care (01) ==
LOC: ER 14:26
DX: G51.0 Bell's palsy (principal); U07.1 COVID-19; J41.0 Simple chronic bronchitis; R00.0 Tachycardia, unspecified; R03.0 Elevated blood-pressure reading, without diagnosis of hypertension
CPT/HCPCS: 96365; 96368; 93005; 87070; 85025; 80048; 36415; 83735; 85610; 80076; 87081; 85730; 84484; 87635; 80307; 87804 ×2; 70450; 71275; 71045; 96375; 99284; 96366; Q9967; J1100; J7050; J7030